=== PATIENT | male | born 1950 | race Caucasian/White ===

== ENCOUNTER 2019-11-10 20:55 | Emergency (ER) | payer MEDICARE, OTHER ==
[~2019-11-10] VITALS: Ht 167.6 cm; Wt 97.5 kg
[~2019-11-10 20:55] MED LIST: FOLIC ACID0.4 MG PO; MOBIC7.5 M1 PO; PREDNISONE 20 M20 M1 PO; RELISTOR8 MG/0.4 M; SIMVASTATIN5 MG PO
[2019-11-10] MEDS ORDERED: ATORVASTATIN (21:08)
[2019-11-10] MEDS ORDERED: METHOTREXATE (21:09)
[2019-11-10] MEDS ORDERED: PROSTATE MEDICATION (21:09)
[2019-11-10] MEDS ORDERED: CYMBALTA (21:11)
[2019-11-10] MEDS ORDERED: MELOXICAM15 MG PO (21:59)
[2019-11-10 22:43] VITALS: BP 134/65
== END 2019-11-10 22:44 | disposition home or self-care (01) ==
LOC: M.ERS 20:55
DX: S83.411A Sprain of medial collateral ligament of right knee, initial encounter (principal); M19.90 Unspecified osteoarthritis, unspecified site; E78.00 Pure hypercholesterolemia, unspecified; W18.39XA Other fall on same level, initial encounter; Y93.02 Activity, running; Y92.89 Other specified places as the place of occurrence of the external cause; Y99.8 Other external cause status

== ENCOUNTER 2020-12-20 19:41 | Emergency (ER) | payer MEDICARE, OTHER ==
[~2020-12-20] VITALS: Ht 167.6 cm; Wt 96.6 kg
[~2020-12-20 19:41] MED LIST changes: +ATORVASTATIN; +CYMBALTA; +MELOXICAM15 MG PO; +METHOTREXATE; +PROSTATE MEDICATION
[2020-12-20 20:36] LABS: URINE BILIRUBIN NEGATIVE (Negative); URINE BLOOD NEGATIVE (Negative); URINE CLARITY CLEAR; URINE COLOR YELLOW; URINE GLUCOSE-RANDOM NEGATIVE (Negative); URINE KETONES NEGATIVE (Negative); URINE LEUKOCYTES-REFLEX NEGATIVE (Negative); URINE NITRITE-REFLEX NEGATIVE (Negative); URINE PROTEIN NEGATIVE (Negative); URINE UROBILINOGEN 0.2 E.U./dl (0.2-1.0)
[2020-12-20] MEDS ORDERED: ACETAMINOPHEN-1 EAC2 PO (23:57)
[2020-12-20] MEDS ORDERED: CYCLOBENZAPRINE5 MG PO (23:57)
[2020-12-21 00:14] VITALS: BP 127/67
== END 2020-12-21 00:15 | disposition home or self-care (01) ==
LOC: M.ERS 19:41
PROVIDERS: Personal Emergency Response Attendant
DX: M62.830 Muscle spasm of back (principal); M54.6 Pain in thoracic spine; M79.7 Fibromyalgia; M19.90 Unspecified osteoarthritis, unspecified site; E78.00 Pure hypercholesterolemia, unspecified